=== PATIENT | male | born 1965 | race Caucasian/White ===

== ENCOUNTER 2016-05-20 11:25 | Outpatient (CLI) | payer BC | END 2016-05-20 11:26 | disposition home or self-care (01) | DX: J93.9 Pneumothorax, unspecified (principal) ==

== ENCOUNTER 2016-06-02 10:25 | Outpatient (CLI) | payer BC | END 2016-06-02 10:26 | disposition home or self-care (01) | DX: J93.9 Pneumothorax, unspecified (principal) ==

== ENCOUNTER 2017-04-11 16:43 | Outpatient (CLI) | payer BC | END 2017-04-11 16:44 | disposition home or self-care (01) | LOC: DI 16:43 | PROVIDERS: ATTEND Family Medicine | DX: Z53.9 Procedure and treatment not carried out, unspecified reason (principal) ==

== ENCOUNTER 2019-03-10 13:05 | Outpatient (CLI) | payer BC | END 2019-03-10 13:06 | disposition critical access hospital (66) | LOC: EMS 13:05 | PROVIDERS: ATTEND Surgery | DX: M54.5 Low back pain (principal) | CPT/HCPCS: A0425; A0429 ==

== ENCOUNTER 2019-03-10 13:25 | Emergency (ER) | payer BC ==
[2019-03-10] MEDS ORDERED: IBUPROFEN 800 MG TABLET PO STA (13:35)
[2019-03-10] MEDS ORDERED: METHOCARBAMOL 500 MG TABLET PO STA (13:35)
[2019-03-10] MEDS ORDERED: diazePAM 5 MG TABLET PO STA (13:35)
[2019-03-10] MEDS ORDERED: ACETAMINOPHEN 325 MG TABLET PO STA (13:35)
--- NOTE | 2019-03-10 13:37 | ED Physician Documentation ---
History of Present Illness - Stated complaint Stated Complaint: BACK INJURY - Chief complaint Chief Complaint: Back Pain - Additonal information Additional information: This is a 53-year-old male with a history of a herniated L5 disc, presents with pain in his back. 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 He states is got worse over the last 24 hours, he feels like his back is spasming, and if he lays in a specific position and will get better, but if he moves at all he has severe pain that shoots down towards his thigh. No weakness or numbness. No fever. No impact to the back or trauma. Patient did have an MRI that confirmed L5 disc protrusion at [facility] 2 years ago. No difficulty urinating or defecating. Review of Systems Constitutional: denies: Fever Skin: denies: Rash Musculoskeletal: reports: Back pain Neurologic: denies: Focal weakness, Numbness PD PAST MEDICAL HISTORY - Past Medical History Cardiovascular: None Respiratory: None Endocrine/Autoimmune: None GI: None : None HEENT: None Psych: None Musculoskeletal: None Derm: None - Past Surgical History Past Surgical History: Yes General: Other - Present Medications Home Medications: Ambulatory Orders Medication Instructions Recorded Confirmed Docusate Sodium 250Mg Capsule 250 mg PO DAILY #20 capsule 05/08/16 [Colace 250Mg Capsule] HYDROcod/ACETAM 5/325 [[place] 5/325] 1 tab PO Q4HR PRN #40 tablet 05/08/16 Cyclobenzaprine [Flexeril] 10 mg PO TID PRN #10 tablet 03/10/19 Ibuprofen 600 mg PO Q6H PRN #30 tablet 03/10/19 Lidocaine Patch 5% [Lidoderm Patch] 1 each TOP DAILY PRN #7 patch 03/10/19 Oxycodone HCl/Acetaminophen 1 - 2 each PO Q6H PRN #10 tablet 03/10/19 [Percocet 5-325 mg Tablet] - Allergies Allergies/Adverse Reactions: Allergies Allergy/AdvReac Type Severity Reaction Status Date / Time Penicillins Allergy Unknown Verified 05/07/16 17:50 - Social History Does the pt smoke?: Yes Smoking Status: Current every day smoker - Immunizations Immunizations are current?: No Immunizations: TDAP >10years/unknown PD ED PE NORMAL - General General: Alert and oriented X 3 - HEENT HEENT: Atraumatic, PERRL - Neck Neck: No bony TTP - Cardiac Cardiac: RRR - Respiratory Respiratory: No respiratory distress, Clear bilaterally - Back Back: Other (No midline tenderness, no step-offs, No bruising or signs of trauma. Left paraspinous tenderness to palpation.) - Extremities Extremities: No deformity - Neuro Neuro: Alert and oriented X 3, Other (5/5 strength with knee extension, ankle dorsiflexion and plantarflexion bilaterally. Sensation intact to light touch over bilateral LE. Brisk capillary refill bilaterally.) Results - Vitals Vitals: Oxygen O2 Source Room air PD MEDICAL DECISION MAKING - ED course Complexity details: considered differential (Strain, sprain, disc herniation, sciatica) ED course: Pt presents with a recurrence of back pain that has been imaged in the past with MRI and revealed disc herniation. He has no red flags: no weakness, bowel or bladder symptoms, no midline tenderness, no trauma, no cancer history, no fever. After pain medications he is able to ambulate and is feeling improved. We will trial supportive care, prescriptions for pain control provided with detailed instructions on safe use. I also discussed the need for close PCP follow up and strict return precautions. Patient agreed and was discharged in the care of his . Departure - Departure Disposition: 01 Home, Self Care Clinical Impression: Back pain Qualifiers: Back pain location: low back pain Chronicity: acute Back pain laterality: left Sciatica presence: with sciatica Sciatica laterality: sciatica of left side Qualified Code(s): M54.42 - Lumbago with sciatica, left side Condition: Good Instructions: ED Neck Back Pain General Follow-Up: Your,PCP [Other] Prescriptions: Cyclobenzaprine [Flexeril] 10 mg PO TID PRN #10 tablet PRN Reason: Spasms Ibuprofen 600 mg PO Q6H PRN #30 tablet PRN Reason: Pain Lidocaine Patch 5% [Lidoderm Patch] 1 each TOP DAILY PRN #7 patch PRN Reason: Pain Oxycodone HCl/Acetaminophen [Percocet 5-325 mg Tablet] 1 - 2 each PO Q6H PRN #10 tablet PRN Reason: pain Comments: You were seen today for back pain. You appear to have some sciatica which is likely related to the herniation of your disc which was injured in the past. Please avoid straining your back, and take ibuprofen, Tylenol, Flexeril for the pain. If this does not control your symptoms, you may use the Percocet, but try to use the narcotic medication sparingly and only for the time absolutely needed. Do not take the Percocet and the Flexeril at the same time, as these are both sedating medications in combination they may cause you to become too drowsy. Return to the emergency department if you are developing weakness in your leg, difficulty urinating or having bowel movements, fever, or other concerning symptoms. Otherwise please follow-up closely with your primary care provider. Do not drink alcohol or drive while taking narcotic pain medication. Note that many narcotic pain relievers also contain Tylenol/acetaminophen. Please ensure that your total dose of acetaminophen from all sources does not exceed 3 g (3000 mg) per day. You may get constipated while on this medication. Take a stool softener such as Colace twice a day while you are on it. Also add an [id number] laxative such as senna or MiraLAX on any day that you do not have a bowel movement. If you received a narcotic pain medication or sedative while in the emergency department, do not drive for the next 24 hours. Forms: Activity restrictions Discharge Date/Time: 03/10/19 17:03
[2019-03-10] MEDS ORDERED: oxyCODONE 5 MG TABLET PO STA (14:47)
[2019-03-10 17:41] VITALS: BP 118/76
== END 2019-03-10 17:03 | disposition home or self-care (01) ==
LOC: EDUNIT# → ED 13:25
DX: M54.42 Lumbago with sciatica, left side (principal); F17.200 Nicotine dependence, unspecified, uncomplicated
CPT/HCPCS: 99283; A9270